=== PATIENT | female | born 1990 | race Caucasian/White ===

== ENCOUNTER 2017-08-31 12:31 | Emergency (ER) | payer OTHER ==
[2017-08-31] MEDS ORDERED: Sodium Chloride 0.9% 1,000 ML IV ONE (12:39)
--- NOTE | 2017-08-31 12:44 | EDM.PDOC ---
ED HPI GENERAL MEDICAL PROBLEM - General Chief Complaint: Abdominal Pain Stated Complaint: UPPER ABDOMINAL PAIN WITH Time Seen by Provider: 08/31/17 12:40 - History of Present Illness INITIAL COMMENTS - FREE TEXT/NARRATIVE: HISTORY AND PHYSICAL: History of present illness: Patient 26-year-old white female is approximate 7 months presents with 3 days of abdominal pain has been intermittent and described as cramping is more right-sided initially she has had episodes words across her abdomen she had no vaginal discharge or irregular bleeding or other complaints she denies discomfort with urination fever chills nausea vomiting trauma or other concern. Review of systems: As per history of present illness and below otherwise all systems reviewed and negative. Past medical history: As per history of present illness and as reviewed below otherwise noncontributory. Surgical history: As per history of present illness and as reviewed below otherwise noncontributory. Social history: No reported history of drug or alcohol abuse. Family history: As per history of present illness and as reviewed below otherwise noncontributory. Physical exam: HEENT: Atraumatic, normocephalic, pupils reactive, negative for conjunctival pallor or scleral icterus, mucous membranes moist, throat clear, neck supple, nontender, trachea midline. Lungs: Clear to auscultation, breath sounds equal bilaterally, chest nontender. Heart: S1S2, regular, negative for clicks, rubs, or JVD. Abdomen: Gravid uterus noted consistent with dates is no localized tenderness. Negative for masses or hepatosplenomegaly. Negative for costovertebral tenderness. Pelvis: Stable nontender. Genitourinary: Deferred. Rectal: Deferred. Extremities: Atraumatic, negative for cords or calf pain. Neurovascular unremarkable. Neuro: Awake, alert, oriented. Cranial nerves II through XII unremarkable. Cerebellum unremarkable. Motor and sensory unremarkable throughout. Exam nonfocal. Diagnostics: CBC CMP UA ultrasound gallbladder non Contraction stress test and monitoring per [employer]: Normal saline 1 L bolus Impression: #1 3rd trimester #2 abdominal pain Definitive disposition and diagnosis as appropriate pending reevaluation and review of above. - Related Data Allergies Allergy/AdvReac Type Severity Reaction Status Date / Time No Known Allergies Allergy Verified 08/31/17 13:15 Home Meds: Home Meds Acetaminophen [Tylenol Extra Strength] PRN 08/31/17 [History] Acetaminophen/Butalbital/Caff [Fioricet 325-50-40 MG] TID PRN 08/31/17 [History] Vits #93/Iron Fum/FA [ Formula Tablet] 1 tab DAILY 08/31/17 [ History] ED ROS GENERAL - Review of Systems Review Of Systems: ROS reveals no pertinent complaints other than HPI. ED EXAM, GENERAL - Physical Exam Exam: See Below (See dictation) Course - Vital Signs Text/Narrative:: Case was discussed with patient's OB provider including ultrasound report lab work and labor and delivery monitoring and not contraction stress test. Patient will be discharged home with OB follow-up return as needed as discussed Last Recorded V/S: Last Vital Signs Temp 36.9 C 08/31/17 12:50 Pulse 90 08/31/17 12:50 Resp 20 08/31/17 12:50 BP 122/70 08/31/17 12:50 Pulse Ox - Orders/Labs/Meds Orders: Active Orders 24 hr Category Date Time Status NST [ Non Stress Test] [RC] PER UNIT ROUTINE Care 08/31/17 12:55 Active Abdomen Ltd [US] Stat Exams 08/31/17 12:42 Ordered Labs: Laboratory Tests 08/31/17 08/31/17 08/31/17 Range/Units 12:50 12:56 12:56 WBC 11.00 (4.0-11.0) K/uL RBC 4.12 L (4.30-5.90) M/uL Hgb 12.7 (12.0-16.0) g/dL Hct 36.8 (36.0-46.0) % MCV 89.3 (80.0-98.0) fL MCH 30.8 (27.0-32.0) pg MCHC 34.5 (31.0-37.0) g/dL RDW Std Deviation 42.2 (28.0-62.0) fl RDW Coeff of Ruth 13 (11.0-15.0) % Plt Count 167 (150-400) K/uL MPV 12.10 H (7.40-12.00) fL Neut % (Auto) 77.3 (48.0-80.0) % Lymph % (Auto) 14.5 L (16.0-40.0) % [place] % (Auto) 7.5 (0.0-15.0) % Eos % (Auto) 0.5 (0.0-7.0) % Baso % (Auto) 0.2 (0.0-1.5) % Neut # (Auto) 8.5 H (1.4-5.7) K/uL Lymph # (Auto) 1.6 (0.6-2.4) K/uL [place] # (Auto) 0.8 (0.0-0.8) K/uL Eos # (Auto) 0.1 (0.0-0.7) K/uL Baso # (Auto) 0.0 (0.0-0.1) K/uL Nucleated RBC % 0.0 /100WBC Nucleated RBCs # 0 K/uL INR 0.94 Sodium (136-146) mmol/L Potassium (3.5-5.1) mmol/L Chloride (98-110) mmol/L Carbon Dioxide (21-31) mmol/L BUN (6.0-23.0) mg/dL Creatinine (0.6-1.5) mg/dL Est Cr Clr Drug Dosing mL/min Estimated GFR (MDRD) ml/min Glucose (60-110) mg/dL Calcium (8.8-10.8) mg/dL Total Bilirubin (0.1-1.5) mg/dL AST (5-40) IU/L ALT (8-54) IU/L Alkaline Phosphatase (40-150) Total Protein (6.0-8.0) g/dL Albumin (3.5-5.0) g/dL Globulin (2.0-3.5) g/dL Albumin/Globulin Ratio (1.3-2.8) Lipase (7-80) U/L Urine Color YELLOW Urine Appearance CLEAR Urine pH 7.0 (5.0-8.0) Ur Specific [place] 1.020 (1.001-1.035) Urine Protein NEGATIVE (NEGATIVE) mg/dL Urine Glucose (UA) NEGATIVE (NEGATIVE) mg/dL Urine Ketones NEGATIVE (NEGATIVE) mg/dL Urine Occult Blood NEGATIVE (NEGATIVE) Urine Nitrite NEGATIVE (NEGATIVE) Urine Bilirubin NEGATIVE (NEGATIVE) Urine Urobilinogen 0.2 (<2.0) EU/dL Ur Leukocyte Esterase NEGATIVE (NEGATIVE) Urine RBC 0-1 (0-2/HPF) Urine WBC 0-1 (0-5/HPF) Ur Epithelial Cells RARE (NONE-FEW) Urine Bacteria RARE (NEGATIVE) 08/31/17 Range/Units 12:56 WBC (4.0-11.0) K/uL RBC (4.30-5.90) M/uL Hgb (12.0-16.0) g/dL Hct (36.0-46.0) % MCV (80.0-98.0) fL MCH (27.0-32.0) pg MCHC (31.0-37.0) g/dL RDW Std Deviation (28.0-62.0) fl RDW Coeff of Ruth (11.0-15.0) % Plt Count (150-400) K/uL MPV (7.40-12.00) fL Neut % (Auto) (48.0-80.0) % Lymph % (Auto) (16.0-40.0) % [place] % (Auto) (0.0-15.0) % Eos % (Auto) (0.0-7.0) % Baso % (Auto) (0.0-1.5) % Neut # (Auto) (1.4-5.7) K/uL Lymph # (Auto) (0.6-2.4) K/uL [place] # (Auto) (0.0-0.8) K/uL Eos # (Auto) (0.0-0.7) K/uL Baso # (Auto) (0.0-0.1) K/uL Nucleated RBC % /100WBC Nucleated RBCs # K/uL INR Sodium 137 (136-146) mmol/L Potassium 3.8 (3.5-5.1) mmol/L Chloride 107 (98-110) mmol/L Carbon Dioxide 22 (21-31) mmol/L BUN 8 (6.0-23.0) mg/dL Creatinine 0.6 (0.6-1.5) mg/dL Est Cr Clr Drug Dosing 147.19 mL/min Estimated GFR (MDRD) > 60.0 ml/min Glucose 91 (60-110) mg/dL Calcium 8.5 L (8.8-10.8) mg/dL Total Bilirubin 0.2 (0.1-1.5) mg/dL AST 12 (5-40) IU/L ALT 10 (8-54) IU/L Alkaline Phosphatase 84 (40-150) Total Protein 6.3 (6.0-8.0) g/dL Albumin 3.2 L (3.5-5.0) g/dL Globulin 3.1 (2.0-3.5) g/dL Albumin/Globulin Ratio 1.0 L (1.3-2.8) Lipase 22 (7-80) U/L Urine Color Urine Appearance Urine pH (5.0-8.0) Ur Specific [place] (1.001-1.035) Urine Protein (NEGATIVE) mg/dL Urine Glucose (UA) (NEGATIVE) mg/dL Urine Ketones (NEGATIVE) mg/dL Urine Occult Blood (NEGATIVE) Urine Nitrite (NEGATIVE) Urine Bilirubin (NEGATIVE) Urine Urobilinogen (<2.0) EU/dL Ur Leukocyte Esterase (NEGATIVE) Urine RBC (0-2/HPF) Urine WBC (0-5/HPF) Ur Epithelial Cells (NONE-FEW) Urine Bacteria (NEGATIVE) Meds: Medications Discontinued Medications Generic Name Dose Route Start Last Admin Trade Name Freq PRN Reason Stop Dose Admin Sodium Chloride 1,000 mls @ 999 mls/hr 08/31/17 12:39 08/31/17 13:20 Normal Saline IV 08/31/17 13:39 999 mls/hr STAT ONE Administration Departure - Departure Time of Disposition: 14:38 Disposition: Home, Self-Care 01 Condition: Good Clinical Impression: Third trimester , Hydronephrosis determined by ultrasound, Encounter for medical screening examination - Discharge Information Referrals: Latasha Sinclair CNM [Primary Care Provider] - Forms: ED Department Discharge Additional Instructions: The following information is given to patients seen in the emergency department who are being discharged to home. This information is to outline your options for follow-up care. We provide all patients seen in our emergency department with a follow-up referral. The need for follow-up, as well as the timing and circumstances, are variable depending upon the specifics of your emergency department visit. If you don't have a primary care physician on staff, we will provide you with a referral. We always advise you to contact your personal physician following an emergency department visit to inform them of the circumstance of the visit and for follow-up with them and/or the need for any referrals to a consulting specialist. The emergency department will also refer you to a specialist when appropriate. This referral assures that you have the opportunity for followup care with a specialist. All of these measure are taken in an effort to provide you with optimal care, which includes your followup. Under all circumstances we always encourage you to contact your private physician who remains a resource for coordinating your care. When calling for followup care, please make the office aware that this follow-up is from your recent emergency room visit. If for any reason you are refused follow-up, please contact the [facility] emergency department at and asked to speak to the emergency department charge nurse. Follow-up regular medical doctor and SIGNALS INTELLIGENCE ANALYSIS MANAGER as discussed continue routine care return as needed as discussed - My Orders Last 24 Hours: My Active Orders 08/31/17 12:42 Abdomen Ltd [US] Stat - Assessment/Plan Last 24 Hours: My Active Orders 08/31/17 12:42 Abdomen Ltd [US] Stat
[2017-08-31 13:40] LABS: CHLORIDE,CL 107 mmol/L (98-110); SODIUM,NA 137 mmol/L (136-146)
--- NOTE | 2017-08-31 15:03 | US ---
EXAMINATION: Right upper quadrant ultrasound HISTORY: Pain COMPARISON: None TECHNIQUE: Grayscale and color Doppler images obtained of the right upper quadrant. FINDINGS: Pancreas is not well characterized. The liver appears grossly normal contour and echotextur e without a focal hepatic mass. The gallbladder wall thickness is normal. No pericholecystic fluid or shadowing gallstones. The Common bile duct measures 4 mm. The right kidney measures at least 11.3 cm [id number] with severe pyelocaliectasis and proximal right hydroureter. IMPRESSION: 1. Severe right pyelocaliectasis and proximal right hydroureter.
== END 2017-08-31 15:10 | disposition home or self-care (01) ==
LOC: MW.ED 12:31
DX: O99.89 Other specified diseases and conditions complicating pregnancy, childbirth and the puerperium (principal); N13.30 Unspecified hydronephrosis
CPT/HCPCS: 36415; 76705; 80053; 81001; 83690; 85025; 85610; 96360; 99284; J7040

== ENCOUNTER 2017-11-13 03:09 | Inpatient (IN) | payer OTHER ==
[2017-11-13] MEDS ORDERED: Lidocaine 1% 50 ML MDV INJECT PRN (03:55)
[2017-11-13] MEDS ORDERED: Misoprostol 200 MCG Tab PO PRN (03:55)
[2017-11-13] MEDS ORDERED: Butorphanol 1 MG/ML SDV IVPUSH PRN (03:55)
[2017-11-13] MEDS ORDERED: Sodium Chloride 0.9% 10 ML Syringe FLUSH PRN (03:55)
[2017-11-13] MEDS ORDERED: Nalbuphine 10 MG/1 ML Vial IVPUSH PRN (03:55)
[2017-11-13] MEDS ORDERED: Methylergonovine 0.2 MG/1 ML Amp IM PRN (03:55)
[2017-11-13] MEDS ORDERED: Carboprost Tromethamine 250 MCG/1 ML Amp IM PRN (03:55)
[2017-11-13] MEDS ORDERED: Tranexamic Acid 1,000 MG in Sodium Chloride 0.9% 100 ML IV PRN (03:55)
[2017-11-13] MEDS ORDERED: Sodium Chloride 0.9% 2.5 ML Syringe FLUSH PRN (03:55)
[2017-11-13] MEDS ORDERED: Water For Irrigation,Sterile 1,000 ML Container IRR PRN (03:55)
[2017-11-13] MEDS ORDERED: Oxytocin/0.9 % Sodium Chloride 30 UNIT/500 ML BAG IV SCH (04:00)
[2017-11-13] MEDS ORDERED: Lactated Ringers 1,000 ML IV SCH (04:00)
--- NOTE | 2017-11-13 05:03 | PCM.LDHP ---
L&D History of Present Illness - General Date of Service: 11/13/17 Admit Problem/Dx: Patient Status Order with Admit Dx/Problem 11/13/17 03:16 Patient Status [ADT] Routine 11/13/17 03:56 Patient Status [ADT] Routine Admission Diagnosis/Problem Admission Diagnosis/Problem Source of Information: Patient History Limitations: Reports: No Limitations - History of Present Illness Improves with: Reports: None Worsens with: Reports: None Associated Symptoms: Reports: N - Related Data Allergies/Adverse Reactions: Allergies Allergy/AdvReac Type Severity Reaction Status Date / Time No Known Allergies Allergy Verified 11/13/17 03:47 Home Medications: Home Meds Acetaminophen [Tylenol Extra Strength] PRN 08/31/17 [History] Vits #93/Iron Fum/FA [ Formula Tablet] 1 tab DAILY 08/31/17 [ History] Past Medical History DISABILITY REPRESENTATIVE History: Reports: , Other (See Below) Other OB/BYN History: Ruptured ovarian cyst with Laparotomy to remove blood from pelvis Psychiatric History: Reports: Anxiety, Depression, Other (See Below) Other Psychiatric History: hx anxiety in past, depression , on no medications Social & Family History - Family History Family Medical History: Noncontributory - Tobacco Use Smoking Status *Q: Former Smoker Years of Tobacco use: 8 Used Tobacco, but Quit: Yes Month/Year Tobacco Last Used: 5 years Second Hand Smoke Exposure: No - Caffeine Use Caffeine Use: Reports: Coffee, Tea - Recreational Drug Use Recreational Drug Use: No H&P Review of Systems - Review of Systems: Review Of Systems: See Below General: Reports: No Symptoms HEENT: Reports: No Symptoms Pulmonary: Reports: No Symptoms Cardiovascular: Reports: No Symptoms Gastrointestinal: Reports: No Symptoms Genitourinary: Reports: No Symptoms Musculoskeletal: Reports: No Symptoms Skin: Reports: No Symptoms Psychiatric: Reports: No Symptoms Neurological: Reports: No Symptoms Hematologic/Lymphatic: Reports: No Symptoms Immunologic: Reports: No Symptoms L&D Exam - Exam Exam: See Below - Vital Signs Weight: 87.09 kg - OB Specific Fundal Height In cm: 38 Contraction Intensity: Mild Movement: Active Heart Tones: Present Presentation: Vertex - Beckford Score Beckford Score Cervix Position: Anterior Beckford Score Consistency: Soft Beckford Score Effacement: >80% Beckford Score Dilation: 3-4 cm Beckford Score Infant's Station: -1 ,0 Beckford Score Total: 11 - Exam General: Alert, Oriented HEENT: PERRLA, Conjunctiva Clear, EACs Clear, EOMI, Hearing Intact, Mucosa Moist & [place], Nares Patent, Normal Nasal Septum, Posterior Pharynx Clear, TMs Clear Neck: Supple, Trachea Midline Lungs: Clear to Auscultation, Normal Respiratory Effort Cardiovascular: Regular Rate, Regular Rhythm GI/Abdominal Exam: Normal Bowel Sounds, Soft, Non-Tender, No Organomegaly, No Distention, No Abnormal Bruit, No Mass, Pelvis Stable Rectal Exam: Normal Exam, Normal Rectal Tone Genitourinary: Normal external exam, Normal bimanual exam, Normal speculum exam Back Exam: Normal Inspection, Full Range of Motion Extremities: Normal Inspection, Normal Range of Motion, Non-Tender, No Pedal Edema, Normal Capillary Refill Skin: Warm, Dry, Intact Neurological: Cranial Nerves Intact, Reflexes Equal Bilateral Psychiatric: Alert, Normal Affect, Normal Mood - Patient Data Lab Results Last 24 hrs: Laboratory Results - last 24 hr 11/13/17 11/13/17 Range/Units 03:30 04:30 WBC 13.82 H (4.0-11.0) K/uL RBC 4.65 (4.30-5.90) M/uL Hgb 14.3 (12.0-16.0) g/dL Hct 41.1 (36.0-46.0) % MCV 88.4 (80.0-98.0) fL MCH 30.8 (27.0-32.0) pg MCHC 34.8 (31.0-37.0) g/dL RDW Std Deviation 41.4 (28.0-62.0) fl RDW Coeff of Ruth 13 (11.0-15.0) % Plt Count 117 L (150-400) K/uL MPV 12.80 H (7.40-12.00) fL Nucleated RBC % 0.0 /100WBC Nucleated RBCs # 0 K/uL Membrane Rupture POSITIVE Result Diagrams: 11/13/17 04:30 Problem List Initiated/Reviewed/Updated: Yes Orders Last 24hrs: Active Orders 24 hr Category Date Time Status Patient Status [ADT] Routine ADT 11/13/17 03:56 Active Heart Tones [RC] CONTINUOUS Care 11/13/17 03:56 Active Non Stress Test [RC] PER UNIT ROUTINE Care 11/13/17 03:16 Active May Shower [RC] ASDIRECTED Care 11/13/17 03:56 Active Notify Provider [RC] PRN Care 11/13/17 03:56 Active Up ad Berta [RC] ASDIRECTED Care 11/13/17 03:16 Active Vaginal Exam [RC] Click to Edit Care 11/13/17 03:16 Active Vital Signs [RC] PER UNIT ROUTINE Care 11/13/17 03:16 Active TYPE AND SCREEN [BBK] Routine Lab 11/13/17 04:30 Received Butorphanol [Stadol] Med 11/13/17 03:55 Active 1 mg IVPUSH Q1H PRN Carboprost Tromethamine [Hemabate DS] Med 11/13/17 03:55 Active 250 mcg IM ASDIRECTED PRN Lactated Ringers [Ringers, Lactated] 1,000 ml Med 11/13/17 04:00 Active IV ASDIRECTED Lidocaine 1% [Xylocaine 1%] Med 11/13/17 03:55 Active 50 ml INJECT .ONCE PRN Methylergonovine [Methergine] Med 11/13/17 03:55 Active 0.2 mg IM ASDIRECTED PRN Misoprostol [Cytotec] Med 11/13/17 03:55 Active 200 mcg PO .ONCE PRN Nalbuphine [Nubain] Med 11/13/17 03:55 Active 10 mg IVPUSH Q1H PRN Oxytocin/0.9 % Sodium Chloride [Oxytocin 30 Unit/500 ML Med 11/13/17 04:00 Active -NS] 30 unit in 500 ml IV TITRATE Sodium Chloride 0.9% [Saline Flush] Med 11/13/17 03:55 Active 10 ml FLUSH ASDIRECTED PRN Sodium Chloride 0.9% [Saline Flush] Med 11/13/17 03:55 Active 2.5 ml FLUSH ASDIRECTED PRN Tranexamic Acid [Cyklokapron] 1,000 mg Med 11/13/17 03:55 Active Sodium Chloride 0.9% [Normal Saline] 100 ml IV ONETIME Water For Irrigation,Sterile [Sterile Water for Med 11/13/17 03:55 Active Irrigation] 1,000 ml IRR ASDIRECTED PRN Scalp Electrode [WOMSER] Per Unit Routine Oth 11/13/17 03:56 Ordered Peripheral IV Insertion Adult [OM.PC] Routine Oth 11/13/17 03:56 Ordered Resuscitation Status Routine Resus Stat 11/13/17 03:16 Ordered Medication Orders Butorphanol Tartrate (Stadol) 1 mg IVPUSH Q1H PRN PRN Reason: Pain Carboprost Tromethamine (Hemabate Ds) 250 mcg IM ASDIRECTED PRN PRN Reason: Post Hemorrhage Tranexamic Acid 1,000 mg/ (Sodium Chloride) 110 mls @ 660 mls/hr IV ONETIME PRN PRN Reason: Bleeding Lactated Ringer's (Ringers, Lactated) 1,000 mls @ 150 mls/hr IV ASDIRECTED BOOKER Oxytocin/Sodium Chloride (Oxytocin 30 Unit/500 Ml-Ns) 30 unit in 500 mls @ 999 mls/hr IV TITRATE BOOKER Lidocaine HCl (Xylocaine 1%) 50 ml INJECT .ONCE PRN PRN Reason: Laceration repair Methylergonovine Maleate (Methergine) 0.2 mg IM ASDIRECTED PRN PRN Reason: Post Hemorrhage Misoprostol (Cytotec) 200 mcg PO .ONCE PRN PRN Reason: Post Hemorrhage Nalbuphine HCl (Nubain) 10 mg IVPUSH Q1H PRN PRN Reason: Pain (severe 7-10) Sodium Chloride (Saline Flush) 10 ml FLUSH ASDIRECTED PRN PRN Reason: Keep Vein Open Sodium Chloride (Saline Flush) 2.5 ml FLUSH ASDIRECTED PRN PRN Reason: Keep Vein Open Sterile Water (Sterile Water For Irrigation) 1,000 ml IRR ASDIRECTED PRN PRN Reason: delivery Assessment/Plan Comment:: Term in active labor
[2017-11-13] MEDS ORDERED: fentaNYL 100 MCG/2 ML SDV ONE (05:18)
--- NOTE | 2017-11-13 05:55 | PCM.PREANE ---
Preanesthetic Assessment - Procedure Proposed Procedure: Labor Epidural - Anesthesia/Transfusion/Family Hx Anesthesia History: Prior Anesthesia Without Reaction Family History of Anesthesia Reaction: No Transfusion History: No Prior Transfusion(s) Intubation History: Unknown - Review of Systems General: No Symptoms Pulmonary: No Symptoms Cardiovascular: No Symptoms Gastrointestinal: No Symptoms Neurological: No Symptoms Other: Reports: None (04/24 pain with contractions- rapid labor progression), Anxiety - Physical Assessment Blood Pressure: 124/80 Height: 5 ft 9 in Weight: 192 lb ASA Class: 2 Mental Status: Alert & Oriented x3 Airway Class: Mallampati = 2 Dentition: Reports: Normal Dentition Thyro-Mental Finger Breadths: 3 Mouth Opening Finger Breadths: 3 ROM/Head Extension: Full Lungs: Clear to Auscultation, Normal Respiratory Effort Cardiovascular: Regular Rate, Regular Rhythm - Lab Values: Laboratory Last Values WBC 13.82 K/uL (4.0-11.0) H 11/13/17 04:30 RBC 4.65 M/uL (4.30-5.90) 11/13/17 04:30 Hgb 14.3 g/dL (12.0-16.0) 11/13/17 04:30 Hct 41.1 % (36.0-46.0) 11/13/17 04:30 MCV 88.4 fL (80.0-98.0) 11/13/17 04:30 MCH 30.8 pg (27.0-32.0) 11/13/17 04:30 MCHC 34.8 g/dL (31.0-37.0) 11/13/17 04:30 RDW Std Deviation 41.4 fl (28.0-62.0) 11/13/17 04:30 RDW Coeff of Ruth 13 % (11.0-15.0) 11/13/17 04:30 Plt Count 117 K/uL (150-400) L 11/13/17 04:30 MPV 12.80 fL (7.40-12.00) H 11/13/17 04:30 Nucleated RBC % 0.0 /100WBC 11/13/17 04:30 Nucleated RBCs # 0 K/uL 11/13/17 04:30 Membrane Rupture POSITIVE 11/13/17 03:30 Blood Type O POSITIVE 11/13/17 04:30 Antibody Screen NEGATIVE 11/13/17 04:30 - Allergies Allergies/Adverse Reactions: Allergies Allergy/AdvReac Type Severity Reaction Status Date / Time No Known Allergies Allergy Verified 11/13/17 03:47 - Blood Blood Available: No Product(s) Available: None - Anesthesia Plan Free Text/Narrative:: Labor Epidural - pt educated that medication takes time to work and pt rapidly progressing - pt understands that even if epidural gets placed, medication may not be effective d/t rapid progression. Dr. Mcleod does not want an intrathecal. 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 - SUBSTANCE USE Smoking Status *Q: Former Smoker Tobacco Use Within Last Twelve Months: No Second Hand Smoke Exposure: No Recreational Drug Use History: No - HOME MEDS Home Medications: Home Meds Acetaminophen [Tylenol Extra Strength] PRN 08/31/17 [History] Vits #93/Iron Fum/FA [ Formula Tablet] 1 tab DAILY 08/31/17 [ History] - CURRENT (IN HOUSE) MEDS Current Meds: Current Medications Butorphanol Tartrate (Stadol) 1 mg IVPUSH Q1H PRN PRN Reason: Pain Carboprost Tromethamine (Hemabate Ds) 250 mcg IM ASDIRECTED PRN PRN Reason: Post Hemorrhage Tranexamic Acid 1,000 mg/ (Sodium Chloride) 110 mls @ 660 mls/hr IV ONETIME PRN PRN Reason: Bleeding Lactated Ringer's (Ringers, Lactated) 1,000 mls @ 150 mls/hr IV ASDIRECTED BOOKER Last Admin: 11/13/17 04:35 Dose: 999 mls/hr Oxytocin/Sodium Chloride (Oxytocin 30 Unit/500 Ml-Ns) 30 unit in 500 mls @ 999 mls/hr IV TITRATE BOOKER Lidocaine HCl (Xylocaine 1%) 50 ml INJECT .ONCE PRN PRN Reason: Laceration repair Methylergonovine Maleate (Methergine) 0.2 mg IM ASDIRECTED PRN PRN Reason: Post Hemorrhage Misoprostol (Cytotec) 200 mcg PO .ONCE PRN PRN Reason: Post Hemorrhage Nalbuphine HCl (Nubain) 10 mg IVPUSH Q1H PRN PRN Reason: Pain (severe 7-10) Sodium Chloride (Saline Flush) 10 ml FLUSH ASDIRECTED PRN PRN Reason: Keep Vein Open Sodium Chloride (Saline Flush) 2.5 ml FLUSH ASDIRECTED PRN PRN Reason: Keep Vein Open Sterile Water (Sterile Water For Irrigation) 1,000 ml IRR ASDIRECTED PRN PRN Reason: delivery Discontinued Medications Fentanyl (Sublimaze) Confirm Administered Dose 100 mcg .ROUTE .STK-MED ONE Stop: 11/13/17 05:19 Fentanyl/Bupivacaine HCl (Ysszipfq-Maxmo-Hu 2 Mcg/Ml-0.125%) Confirm Administered Dose 100 mls @ as directed EP .STK-MED ONE Stop: 11/13/17 05:19
[2017-11-13] MEDS ORDERED: Bisacodyl 10 MG Supp RECTAL PRN (05:58)
[2017-11-13] MEDS ORDERED: Lanolin 100% Cream 7 GM Tube TOP PRN (05:58)
[2017-11-13] MEDS ORDERED: Witch Hazel Medicated Pads 40/Jar TOP PRN (05:58)
[2017-11-13] MEDS ORDERED: Benzocaine/Menthol 20%-0.5% Spray 78 GM Cannister TOP PRN (05:58)
[2017-11-13] MEDS ORDERED: Ibuprofen 400 MG Tab PO PRN (05:58)
[2017-11-13] MEDS ORDERED: Docusate Sodium 100 MG Cap PO PRN (05:58)
[2017-11-13] MEDS ORDERED: Acetaminophen 500 MG Tab PO PRN ×2 (05:58)
[2017-11-13] MEDS: Ibuprofen 800 MG Tab PO PRN ×3 (06:37→19:57)
--- NOTE | 2017-11-13 06:55 | OR ---
SURGEON: Adolfo Mcleod MD DATE OF PROCEDURE: 11/13/2017 Ms. Mccain is 27 years old. She is para 1-0-0-1. She is followed in our office primarily by Latasha Sinclair, nurse-quality assurance lead. Her care was uncomplicated. Her GBS status is negative. Her blood type is O positive. She presented to Labor and Delivery in active labor. At the time of the admission, she was 4, complete, vertex, and -3 with spontaneous rupture of the membranes. The patient's heart rate was category 1, and then the patient rather progressed quickly. She went to 7 cm, and an attempted epidural for labor analgesia was done, but the patient was moving rather fast, and she was unable to hold still. She became complete complete, and then with 2 pushes, she was accomplishing normal spontaneous vaginal delivery of a male fetus. scores reported to be 8 and 9. The placenta delivered spontaneous, complete, and intact without any problem. There was no need for episiotomy. There was no labial, perineal, or cervical laceration. ESTIMATED BLOOD LOSS: 300 to 350 mL. heart rate was category 1 through the entire process of labor and delivery. There was no complication in this delivery. JENN / JITENDRA /[id number]
--- NOTE | 2017-11-13 07:47 | PCM48HPAN ---
Post Anesthesia Note - EVALUATION WITHIN 48HRS OF ANESTHETIC Vital Signs in Normal Range: Yes Patient Participated in Evaluation: Yes Respiratory Function Stable: Yes Airway Patent: Yes Cardiovascular Function Stable: Yes Hydration Status Stable: Yes Pain Control Satisfactory: Yes Nausea and Vomiting Control Satisfactory: Yes Mental Status Recovered: Yes Blood Pressure: 124/80
[2017-11-13] MEDS: oxyCODONE 5 MG Tab PO PRN ×3 (09:27→21:15)
[2017-11-14] MEDS: Ibuprofen 800 MG Tab PO PRN ×2 (02:04→09:55)
--- NOTE | 2017-11-14 08:10 | PCM.DCSUM1 ---
Discharge Summary - Hospital Course Free Text/Narrative:: Discharge home with . Follow up in 2 weeks for depression check and 6 weeks for post . Come sooner if needed, - Discharge Data Discharge Date: 11/14/17 Discharge Disposition: Home, Self-Care 01 Condition: Good - Discharge Diagnosis/Problem(s) (1) (normal spontaneous vaginal delivery) SNOMED Code(s): 36352687 ICD Code: O80 - ENCOUNTER FOR FULL-TERM UNCOMPLICATED DELIVERY Status: Acute Priority: High Current Visit: Yes - Patient Instructions Diet: Usual Diet as Tolerated Activity: As Tolerated, No Strenuous Activities, Rest and Relax Today Driving: May Drive Today Showering/Bathing: May Shower Notify Provider of: Fever, Increased Pain, Swelling and Redness, Nausea and/or Vomiting Other/Special Instructions: Discharge home with . Follow up in 2 weeks for depression check and 6 weeks for post . Come sooner if needed, - Discharge Plan Home Medications: Home Meds Acetaminophen [Tylenol Extra Strength] PRN 08/31/17 [History] Vits #93/Iron Fum/FA [ Formula Tablet] 1 tab DAILY 08/31/17 [ History] Referrals: [facility] [Outside] Latasha Sinclair CNM [Mid-] - (2 week- November 28 @ 1:30pm w/ Latasha Sinclair 6 week- January 09 @ 10:45am w/ Latasha Sinclair) - General Info Date of Service: 11/14/17 Admission Dx/Problem (Free Text: Patient Status Order with Admit Dx/Problem 11/13/17 03:16 Patient Status [ADT] Routine 11/13/17 03:56 Patient Status [ADT] Routine Admission Diagnosis/Problem Admission Diagnosis/Problem Functional Status: Reports: Pain Controlled, Tolerating Diet, Ambulating, Urinating - Review of Systems General: Reports: No Symptoms HEENT: Reports: No Symptoms Pulmonary: Reports: No Symptoms Cardiovascular: Reports: No Symptoms Gastrointestinal: Reports: No Symptoms Genitourinary: Reports: No Symptoms Musculoskeletal: Reports: No Symptoms Skin: Reports: No Symptoms Neurological: Reports: No Symptoms Psychiatric: Reports: No Symptoms - Patient Data Vitals - Most Recent: Last Vital Signs Temp 36.7 C 11/14/17 04:00 Pulse 69 11/14/17 04:00 Resp 15 11/14/17 04:00 BP 105/50 L 11/14/17 04:00 Pulse Ox 99 11/14/17 04:00 Weight - Most Recent: 87.09 kg Lab Results - Last 24 hrs: Laboratory Results - last 24 hr 11/14/17 Range/Units 05:35 Hgb 12.9 (12.0-16.0) g/dL Hct 38.3 (36.0-46.0) % Med Orders - Current: Current Medications Acetaminophen (Tylenol Extra Strength) 500 mg PO Q4H PRN PRN Reason: Pain Last Admin: 11/13/17 06:38 Dose: 500 mg Acetaminophen (Tylenol Extra Strength) 1,000 mg PO Q4H PRN PRN Reason: Pain Last Admin: 11/14/17 06:38 Dose: 1,000 mg Benzocaine/Menthol (Dermoplast Pain Relief 20%-0.5% [place]) 78 gm TOP ASDIRECTED PRN PRN Reason: Perineal Comfort Measure Bisacodyl (Dulcolax) 10 mg RECTAL .ONCE PRN PRN Reason: Constipation Butorphanol Tartrate (Stadol) 1 mg IVPUSH Q1H PRN PRN Reason: Pain Carboprost Tromethamine (Hemabate Ds) 250 mcg IM ASDIRECTED PRN PRN Reason: Post Hemorrhage Docusate Sodium (Colace) 100 mg PO BID PRN PRN Reason: Constipation Last Admin: 11/13/17 13:07 Dose: 100 mg Emollient Ointment (Lansinoh Hpa) 0 gm TOP ASDIRECTED PRN PRN Reason: Sore Nipples Tranexamic Acid 1,000 mg/ (Sodium Chloride) 110 mls @ 660 mls/hr IV ONETIME PRN PRN Reason: Bleeding Lactated Ringer's (Ringers, Lactated) 1,000 mls @ 150 mls/hr IV ASDIRECTED BOOKER Last Admin: 11/13/17 04:35 Dose: 999 mls/hr Oxytocin/Sodium Chloride (Oxytocin 30 Unit/500 Ml-Ns) 30 unit in 500 mls @ 999 mls/hr IV TITRATE BOOKER Last Admin: 11/13/17 05:50 Dose: 999 mls/hr Ibuprofen (Motrin) 400 mg PO Q4H PRN PRN Reason: Pain Ibuprofen (Motrin) 800 mg PO Q6H PRN PRN Reason: Pain Last Admin: 11/14/17 02:04 Dose: 800 mg Lidocaine HCl (Xylocaine 1%) 50 ml INJECT .ONCE PRN PRN Reason: Laceration repair Methylergonovine Maleate (Methergine) 0.2 mg IM ASDIRECTED PRN PRN Reason: Post Hemorrhage Misoprostol (Cytotec) 200 mcg PO .ONCE PRN PRN Reason: Post Hemorrhage Nalbuphine HCl (Nubain) 10 mg IVPUSH Q1H PRN PRN Reason: Pain (severe 7-10) Oxycodone HCl (Oxycodone) 5 mg PO Q2H PRN PRN Reason: Pain Last Admin: 11/13/17 21:15 Dose: 5 mg Sodium Chloride (Saline Flush) 10 ml FLUSH ASDIRECTED PRN PRN Reason: Keep Vein Open Sodium Chloride (Saline Flush) 2.5 ml FLUSH ASDIRECTED PRN PRN Reason: Keep Vein Open Sterile Water (Sterile Water For Irrigation) 1,000 ml IRR ASDIRECTED PRN PRN Reason: delivery Witch Antonia (Tucks) 1 pad TOP ASDIRECTED PRN PRN Reason: comfort care Discontinued Medications Fentanyl (Sublimaze) Confirm Administered Dose 100 mcg .ROUTE .STK-MED ONE Stop: 11/13/17 05:19 Last Admin: 11/13/17 08:33 Dose: Not Given Fentanyl/Bupivacaine HCl (Byjjhuxo-Uatgv-Py 2 Mcg/Ml-0.125%) Confirm Administered Dose 100 mls @ as directed EP .STK-MED ONE Stop: 11/13/17 05:19 Last Admin: 11/13/17 08:33 Dose: Not Given - Exam General: Reports: Alert, Oriented, Cooperative, No Acute Distress Lungs: Reports: Clear to Auscultation, Normal Respiratory Effort Cardiovascular: Reports: Regular Rate, Regular Rhythm, No Murmurs GI/Abdominal Exam: Normal Bowel Sounds, Soft, Non-Tender, No Organomegaly, No Distention, No Abnormal Bruit, No Mass, Pelvis Stable (Female) Exam: Vaginal Bleeding Rectal (Female) Exam: Deferred Back Exam: Reports: Normal Inspection, Full Range of Motion Extremities: Normal Inspection, Normal Range of Motion, Non-Tender, No Pedal Edema, Normal Capillary Refill Skin: Reports: Warm, Dry, Intact Wound/Incisions: Reports: Healing Well Neurological: Reports: No New Focal Deficit, Normal Speech, Normal Tone Psy/Mental Status: Reports: Alert, Normal Affect, Normal Mood
[2017-11-14] MEDS: oxyCODONE 5 MG Tab PO PRN (09:56)
== END 2017-11-14 12:40 | disposition home or self-care (01) | DRG 775 ==
LOC: MW.OBCHECK 03:09 → MW.OB 03:12 → MW.OBCHECK 03:56 → MW.OB 03:56 → OBSVTOIN 05:49 → MW.OB 12:11
PROVIDERS: ADMIT Obstetrics & Gynecology; ATTEND Obstetrics & Gynecology
PROC: 10E0XZZ Delivery of Products of Conception, External Approach (ICD-10-PCS; principal; 2017-11-13)
DX: O80 Encounter for full-term uncomplicated delivery (principal); Z3A.39 39 weeks gestation of pregnancy; Z37.0 Single live birth
CPT/HCPCS: 36415; 59025; 59409; 84112; 85014; 85018; 85027; 86850; 86900; 86901; A9270-GY; J2590; J7120